=== PATIENT | male | born 1955 | race Caucasian/White ===

== ENCOUNTER 2017-05-06 17:55 | Emergency (ER) | payer MEDICAID ==
--- NOTE | 2017-05-06 18:39 | Emergency Department Record ---
History of Present Illness - General Chief Complaint: Dizziness Stated Complaint: DIZZY Time Seen by Provider: 05/06/17 18:32 Source: Patient Mode of Arrival: EMS Limitations: No limitations - History of Present Illness Initial Comments: 61 yo male presents to ED for evaluation of "dizziness when I lift my head". Patient reports that he is dizzy because "I haven't taken my medication today". Patient denies health problems at his baseline, and is presenting from an [facility] home. Staff is not present from the patient's home to provide further history. MD Complaint: Dizziness Onset/Timin -: Hour(s) Timing: Gradual onset Description: Other History of Same: No History of Trauma: No Worsens With: Nothing Associated Symptoms: Denies other symptoms - [place] Coma Scale Eye Response: (4) Open spontaneously Motor Response: (6) Obeys commands Verbal Response: (5) Oriented [place] Total: 15 - Related Data Home Medications Medication Instructions Recorded Confirmed Last Taken Dicyclomine HCl [Bentyl] 10 mg PO Q8H 05/06/17 05/06/17 Unknown Docusate Sodium [Colace] 100 mg PO TID 05/06/17 05/06/17 Unknown Duloxetine HCl [Cymbalta] 60 mg PO DAILY 05/06/17 05/06/17 Unknown Lactulose 10 gm PO BID 05/06/17 05/06/17 Unknown Levothyroxine Sodium [Synthroid] 50 mcg PO DAILY 05/06/17 05/06/17 Unknown Lorazepam [Ativan] 0.5 mg PO TID 05/06/17 05/06/17 Unknown Olanzapine [Zyprexa] 30 mg PO QHS 05/06/17 05/06/17 Unknown Omeprazole 20 mg PO DAILY 05/06/17 05/06/17 Unknown Pregabalin [Lyrica] 200 mg PO BID 05/06/17 05/06/17 Unknown Quetiapine Fumarate [Seroquel] 400 mg PO QHS 05/06/17 05/06/17 Unknown Sennosides [Senna] 8.6 mg PO QHS 05/06/17 05/06/17 Unknown Sennosides/Docusate Sodium [Senna 2 each PO QHS 05/06/17 05/06/17 Unknown S Tablet] Tamsulosin HCl [Flomax] 0.4 mg PO DAILY 05/06/17 05/06/17 Unknown Trihexyphenidyl HCl 2 mg PO TID 05/06/17 05/06/17 Unknown Travel Screening - Travel/Exposure Within Last 30 Days Have you traveled within the last 30 days?: No Review of Systems Constitutional: Denies: Chills, Fever, Malaise, Night sweats Eyes: Denies: Eye discharge, Eye pain ENT: Denies: Congestion, Ear pain, Epistaxis Respiratory: Denies: Cough, Dyspnea Cardiovascular: Denies: Chest pain, Dyspnea on exertion Endocrine: Denies: Fatigue, Heat or cold intolerance Gastrointestinal: Denies: Abdominal pain, Nausea, Vomiting Genitourinary: Denies: Incontinence, Retention Musculoskeletal: Denies: Arthralgia, Back pain, Gout, Joint swelling Skin: Denies: Bruising, Change in color Neurological: Denies: Abnormal gait, Confusion, Headache Psychiatric: Denies: Anxiety Hematological/Lymphatic: Denies: Anemia, Blood Clots Past Medical History - SOCIAL HISTORY Smoking Status: Never smoker Alcohol Use: None Drug Use: None - RESPIRATORY Hx Respiratory Disorders: No - CARDIOVASCULAR Hx Cardio Disorders: No - GI Hx GI Disorders: No - Hx Genitourinary Disorders: No - ENDOCRINE Hx Endocrine Disorders: No - MUSCULOSKELETAL Hx Musculoskeletal Disorders: No - PSYCH Hx Psych Problems: No - HEMATOLOGY/ONCOLOGY Hx Hematology/Oncology Disorders: No Family Medical History Any Significant Family History?: No Physical Exam - General General Appearance: Alert, Oriented x3, Cooperative, No acute distress Limitations: No limitations - Head Head exam: Atraumatic, Normocephalic, Normal inspection Head exam detail: negative: Abrasion, Contusion, Fink's sign, General tenderness, Hematoma, Laceration - Eye Eye exam: Normal appearance. negative: Conjunctival injection, Periorbital swelling, Periorbital tenderness, Scleral icterus - ENT ENT exam: Mucous membranes dry Ear exam: negative: Auricular hematoma, Auricular trauma Nasal Exam: negative: Active bleeding, Discharge, Dried blood, Foreign body Mouth exam: negative: Drooling, Laceration, Muffled voice, Tongue elevation - Neck Neck exam: Normal inspection. negative: Meningismus, Tenderness - Respiratory Respiratory exam: Normal lung sounds bilaterally. negative: Respiratory distress, Rhonchi, Stridor, Wheezes - Cardiovascular Cardiovascular Exam: Regular rate, Normal rhythm, Normal heart sounds - GI/Abdominal GI/Abdominal exam: Soft. negative: Rebound, Rigid, Tenderness - Rectal Rectal exam: Deferred - exam: Deferred - Extremities Extremities exam: Other (benign resting tremor to the upper extremities bilaterally, numerous scars from presumed self injury to both UEs). negative: Calf tenderness, Pedal edema, Tenderness - Back Back exam: Denies: CVA tenderness (R), CVA tenderness (L) - Neurological Neurological exam: Alert, Oriented X3 - Psychiatric Psychiatric exam: Flat affect, Normal mood - Skin Skin exam: negative: Abrasion Type of lesion: negative: abrasion Course Vital Signs 05/06/17 18:07 Temperature 98.4 F Pulse Rate 68 Respiratory 18 Rate Blood Pressure 137/90 Pulse Ox 99 - Reevaluation(s) Reevaluation #1: 05/06/17 19:44 EKG: NSR 76 Normal axis, normal intervals Diffuse artifact is present, no acute ST-T wave changes are present. Reevaluation #2: 05/06/17 19:51 Labs reviewed and are grossly unremarkable for an acute process. EKG reviewed and is negative for arrhythmia. Patient reports that he did not want to take his home medications which has resulted in his dizziness symptoms. Patient is willing to take his medications now, will administer what we can from the patient's medication reconciliation. Reevaluation #3: 05/06/17 20:14 Lactulose 30 gms, Ativan 0.5, and Lyrica 200 mg given in ED. Patient's Parkinson's medications are not available as the hospital pharmacy is currently closed. Patient appears stable for discharge with the patient's [facility] home employee at the bedside at this time. Medical Decision Making - Lab Data Result diagrams: 05/06/17 19:00 05/06/17 19:00 Disposition Disposition: Discharge Clinical Impression: Vertigo, Noncompliance with medication regimen Disposition: Home, Self-Care Condition: (2) Stable Instructions: Adverse Drug Reaction (ED) Additional Instructions: Return to ED if your symptoms worsen or if you have any concerns. Take your medications as directed. Follow-up with your family doctor in 3-5 days as directed. Forms: Patient Portal Access Time of Disposition: 20:16 Quality - Quality Measures Quality Measures: N/A - Blood Pressure Screening Blood Pressure Classification: Hypertensive Reading Systolic Measurement: 137 Diastolic Measurement: 90 Screening for High Blood Pressure: < First Hypertensive BP, F/U Documented > [ G8950] First Hypertensive Follow-up Interventions: Referral to alternative/primary care provider.
[2017-05-06 19:09] LABS: EOS % 1.4 % (0-6); GRAN % 75.4 % (47-80); HEMATOCRIT 40.9 % (42.0-52.0); HEMOGLOBIN 13.8 gm/dl (14.0-18.0); LYMPH % 13.4 % (16-45); MEAN CELL VOLUME 87.4 fl (81-97); MEAN CORPUSCULAR HEMOGLOBIN 29.4 pg (27-33); MEAN CORPUSCULAR HGB CONC 33.7 g/dl (32-36); MEAN PLATELET VOLUME 10.8 fl (7.4-10.4); MONO % 9.8 % (0-9); PLATELET COUNT 123 K/uL (130-400); RED BLOOD COUNT 4.68 M/uL (4.40-5.70); WHITE BLOOD COUNT W/O DIFF 5.6 K/uL (4.2-12.2)
[2017-05-06 19:21] LABS: ALB/GLOB RATIO 1.7 (1.1-1.8); ALBUMIN 4.7 gm/dL (3.5-5.0); ALKALINE PHOSPHATASE 79 U/L (38-126); ALT/SGPT 42 U/L (21-72); ANION GAP 10.7 (7-16); AST/SGOT 36 U/L (17-59); BILIRUBIN,TOTAL 0.93 mg/dL (0.2-1.3); BLOOD UREA NITROGEN 11 mg/dL (9-20); CARBON DIOXIDE 28.3 mmol/L (22-30); CREATININE 0.8 mg/dL (0.66-1.25); EST GLOMERULAR FILTRATION RATE > 60 ml/min; GLUCOSE,RANDOM 100 mg/dL (70-110); TOTAL PROTEIN 7.5 gm/dL (6.3-8.2)
[2017-05-06] MEDS ORDERED: PREGABALIN (LYRICA) 100MG CAPSULE PO ONE (20:12)
[2017-05-06] MEDS ORDERED: LACTULOSE 20 GM/30 ML UDC PO ONE (20:13)
[2017-05-06] MEDS ORDERED: LORAZEPAM 0.5 MG TABLET PO ONE (20:14)
[2017-05-06] MEDS ORDERED: PREGABALIN (LYRICA) 100MG CAPSULE PO SCH (20:15)
== END 2017-05-06 20:50 | disposition home or self-care (01) ==
LOC: ER 17:55
DX: R42 Dizziness and giddiness (principal); Z91.14 Patient's other noncompliance with medication regimen; G20 Parkinson's disease
CPT/HCPCS: 80053; 84443; 85025; 93005; 93010; 99284

== ENCOUNTER 2017-05-23 16:26 | Observation (INO) | payer MEDICAID ==
[2017-05-23] MEDS ORDERED: MECLIZINE 25 MG TABLET PO ONE (16:32)
--- NOTE | 2017-05-23 16:37 | Emergency Department Record ---
History of Present Illness - General Chief Complaint: Syncope Stated Complaint: SYNCOPE Time Seen by Provider: 05/23/17 16:29 Source: Patient, EMS Mode of Arrival: EMS Limitations: No limitations Travel/Exposure to [facility] Within 21 Days of Symptoms: No - History of Present Illness Initial Comments: 61 yo male presents by EMS with dizziness and difficulty walking. He lives at the [facility] home. He states he has had this in the past as well. He was seen in the ED on 05/06/17. He denies syncope. He denies any pain currently. He states the symptoms occur with standing. He has a history of Parkinson and psychiatric diagnoses. He has had all his medications except his Lyrica. Prior visit concern was that he is not taking his medications. EMS had little additional information from the home but stat he normally ambulates without assistance. MD Complaint: Other (Dizziness) -: Hour(s) (2) Prodromal Symptoms: None, Lightheaded Description of Event: Other (Weak and shaky all over) Injuries Sustained Associated with Event: None Current Symptoms: Lightheaded Context: Standing up - [place] Coma Scale Eye Response: (4) Open spontaneously Motor Response: (6) Obeys commands Verbal Response: (5) Oriented [place] Total: 15 - Symptoms of Stroke Symptoms of stroke: Dizziness - Related Data Home Medications Medication Instructions Recorded Confirmed Last Taken Dicyclomine HCl [Bentyl] 10 mg PO Q8H 05/06/17 05/23/17 1 Day Ago ~05/22/17 Docusate Sodium [Colace] 100 mg PO TID 05/06/17 05/23/17 1 Day Ago ~05/22/17 Duloxetine HCl [Cymbalta] 60 mg PO DAILY 05/06/17 05/23/17 1 Day Ago ~05/22/17 Lactulose 10 gm PO BID 05/06/17 05/23/17 1 Day Ago ~05/22/17 Levothyroxine Sodium [Synthroid] 50 mcg PO DAILY 05/06/17 05/23/17 1 Day Ago ~05/22/17 Lorazepam [Ativan] 0.5 mg PO TID 05/06/17 05/23/17 1 Day Ago ~05/22/17 Olanzapine [Zyprexa] 30 mg PO QHS 05/06/17 05/23/17 1 Day Ago ~05/22/17 Omeprazole 20 mg PO DAILY 05/06/17 05/23/17 1 Day Ago ~05/22/17 Pregabalin [Lyrica] 200 mg PO BID 05/06/17 05/23/17 1 Day Ago ~05/22/17 Quetiapine Fumarate [Seroquel] 400 mg PO QHS 05/06/17 05/23/17 1 Day Ago ~05/22/17 Sennosides [Senna] 8.6 mg PO QHS 05/06/17 05/23/17 1 Day Ago ~05/22/17 Tamsulosin HCl [Flomax] 0.4 mg PO DAILY 05/06/17 05/23/17 1 Day Ago ~05/22/17 Trihexyphenidyl HCl 2 mg PO TID 05/06/17 05/23/17 1 Day Ago ~05/22/17 Paliperidone Palmitate [Invega 234 mg IM ASDIR 05/23/17 05/23/17 05/09/17 Sustenna] Polyethylene Glycol 3350 17 gm PO DAILY 05/23/17 05/23/17 1 Day Ago ~05/22/17 Sennosides [Senna] 8.6 mg PO BID 05/23/17 05/23/17 1 Day Ago ~05/22/17 Allergies Allergy/AdvReac Type Severity Reaction Status Date / Time Penicillins Allergy RASH Verified 05/23/17 16:41 Review of Systems Constitutional: Reports: Malaise, Weakness. Denies: Chills, Fever Eyes: Denies: Eye discharge, Eye pain, Photophobia ENT: Denies: Congestion, Throat pain Respiratory: Denies: Cough, Dyspnea Cardiovascular: Denies: Chest pain, Palpitations, Syncope Endocrine: Reports: Fatigue. Denies: Polydipsia, Polyuria Gastrointestinal: Reports: Nausea. Denies: Abdominal pain, Diarrhea, Vomiting Genitourinary: Denies: Dysuria, Frequency, Hematuria Musculoskeletal: Denies: Arthralgia, Back pain, Myalgia, Neck pain Skin: Denies: Bruising, Change in color, Rash Neurological: Reports: Tremors (chronic ), Weakness. Denies: Headache, Numbness Psychiatric: Denies: Anxiety Hematological/Lymphatic: Denies: Easy bleeding, Easy bruising, Swollen glands Past Medical History - SOCIAL HISTORY Smoking Status: Never smoker Drug Use: None - RESPIRATORY Hx Respiratory Disorders: No - CARDIOVASCULAR Hx Cardio Disorders: No - GI Hx GI Disorders: No - Hx Genitourinary Disorders: No - ENDOCRINE Hx Endocrine Disorders: No - MUSCULOSKELETAL Hx Musculoskeletal Disorders: No - PSYCH Hx Psych Problems: No - HEMATOLOGY/ONCOLOGY Hx Hematology/Oncology Disorders: No Physical Exam - General General Appearance: Alert, Oriented x3, Cooperative, No acute distress, Other ( resting tremor) Limitations: No limitations (aswers current histoyr and PMHx questions well) - Head Head exam: Atraumatic, Normocephalic, Normal inspection Head exam detail: negative: Abrasion, Contusion, Hematoma, Laceration - Eye Eye exam: Normal appearance, PERRL, EOMI. negative: Conjunctival injection, Periorbital swelling Pupils: Normal accommodation - ENT ENT exam: Normal exam, Mucous membranes moist Ear exam: Normal external inspection Nasal Exam: Normal inspection Mouth exam: Normal external inspection Teeth exam: Normal inspection - Neck Neck exam: Normal inspection, Full ROM. negative: Tenderness - Respiratory Respiratory exam: Normal lung sounds bilaterally. negative: Respiratory distress, Rhonchi, Stridor, Wheezes - Cardiovascular Cardiovascular Exam: Regular rate, Normal rhythm, Normal heart sounds Peripheral Pulses: 2+: Radial (R), Radial (L) - GI/Abdominal GI/Abdominal exam: Soft. negative: Tenderness - Rectal Rectal exam: Deferred - exam: Deferred - Extremities Extremities exam: Normal inspection, Full ROM. negative: Joint swelling, Pedal edema, Tenderness - Back Back exam: Reports: Normal inspection, Full ROM. Denies: Muscle spasm, Rash noted, Tenderness - Neurological Neurological exam: Abnormal gait (unable to stable due to generalized sheking and weakness), Alert, CN II-XII intact, Oriented X3, Other (No weakness with lower leg raises. No lower ext PND at 10 seconds.). negative: Altered, Motor sensory deficit (anodiser intact, no PND at 10 seconds) - Psychiatric Psychiatric exam: Normal affect, Normal mood. negative: Agitated, Anxious - Skin Skin exam: Dry, Intact, Normal color, Warm. negative: Abrasion, Cyanosis, Erythema Stroke Assessment - NIH Stroke Scale 1a. Level of Consciousness: (0) Alert 1b. LOC Questions: (0) Answers Correctly 1c. LOC Commands: (0) Performs Tasks Correctly 2. Best Gaze: (0) Normal 3. Visual: (0) No Visual Loss 4. Facial Palsy: (0) Normal Symmetrical Movement 5a. Motor Arm Left: (0) No Drift 5b. Motor Arm Right: (0) No Drift 6a. Motor Leg Left: (0) No Drift 6b. Motor Leg Right: (0) No Drift 7. Limb Ataxia: (2) Present 2 Limbs (chronic resting and active tremor from parkinsons dz) 8. Sensory: (0) Normal 9. Best Language: (0) No Aphasia 10. Dysarthria: (0) Normal 11. Extinction/Inattention: (0) No Abnormality NIH Stoke Scale Total: 2 NIH Stroke Scale Date: 05/23/17 NIH Stroke Scale Time: 17:00 Course - Reevaluation(s) Reevaluation #1: EMR reviewed from prior ED visit 05/23/17 16:39 Reevaluation #2: EKG 16:38 NR with artifact due to temor, rate 75, intervals QTc 481, axis normal , NS ST changes. Similar EKG to 05/06/17 05/23/17 16:51 Reevaluation #3: No acute changes on the CBC,CMP,Troponin 05/23/17 17:24 Reevaluation #4: No acute process on the HCT. No hemorrhage or stroke. 05/23/17 17:25 05/23/17 17:54 I rechecked the patient He stated he felt better Myself and the nurse at the bedside performed and ambulation trial The patient was very shaky but able to sit up on his own. He was not able to fully stand up due to feeling shaky, weak and dizzy His baseline is that he ambulates without assistance. Reevaluation #5: Given his inability to stand to to generalized weakness and dizziness I SW Dr Ramachandran. He will admit OBV for neuro checks, he is a fall risk as well. 05/23/17 18:02 Medical Decision Making - Lab Data Result diagrams: 05/23/17 16:30 05/23/17 16:30 Disposition Disposition: Admit Clinical Impression: Generalized weakness, Dizziness Disposition: Still a Patient at [facility] Decision to Admit: Admit from ER Decision to Admit Date: 05/23/17 Decision to Admit Time: 18:02 Condition: (1) Good Forms: Patient Portal Access Time of Disposition: 18:01 Quality - Quality Measures Quality Measures: N/A - Blood Pressure Screening View Details: Yes Blood Pressure Classification: Hypertensive Reading Systolic Measurement: 183 Diastolic Measurement: 113 Screening for High Blood Pressure: < First Hypertensive BP, F/U Documented > [ G8950] First Hypertensive Follow-up Interventions: Referral to alternative/primary care provider.
[2017-05-23 16:46] LABS: BASO % 0.2 % (0-6); EOS % 0.3 % (0-6); HEMATOCRIT 36.9 % (42.0-52.0); HEMOGLOBIN 12.4 gm/dl (14.0-18.0); MEAN CELL VOLUME 87.9 fl (81-97); MEAN CORPUSCULAR HEMOGLOBIN 29.5 pg (27-33); MEAN CORPUSCULAR HGB CONC 33.6 g/dl (32-36); MEAN PLATELET VOLUME 10.2 fl (7.4-10.4); MONO % 5.2 % (0-9); PLATELET COUNT 154 K/uL (130-400); RED CELL DISTRIBUTION WIDTH 13.1 % (11.5-14.5); WHITE BLOOD COUNT W/O DIFF 6.3 K/uL (4.2-12.2)
[2017-05-23 17:02] LABS: PLATELET ESTIMATE NORMAL (NORMAL)
[2017-05-23 17:04] LABS: AMMONIA < 8.7 umol/L (9-30)
[2017-05-23 17:07] LABS: BLOOD UREA NITROGEN 11 mg/dL (9-20); CREATININE 0.8 mg/dL (0.66-1.25); EST GLOMERULAR FILTRATION RATE > 60 ml/min; GLUCOSE,RANDOM 105 mg/dL (70-110)
[2017-05-23 17:08] LABS: ALB/GLOB RATIO 1.8 (1.1-1.8); ALBUMIN 4.3 gm/dL (3.5-5.0); ALKALINE PHOSPHATASE 77 U/L (38-126); ALT/SGPT 51 U/L (21-72); AST/SGOT 35 U/L (17-59); TOTAL PROTEIN 6.7 gm/dL (6.3-8.2); TROPONIN I < 0.012 ng/mL (0.00-0.034)
[2017-05-23 18:08] LABS: THYROID STIMULATING HORMONE 1.72 uIU/ml (0.465-4.68)
[2017-05-23] MEDS ORDERED: 0.9 % SODIUM CHLORIDE 1,000 ML BAG IV ONE (18:15)
[2017-05-23] MEDS ORDERED: MECLIZINE 25 MG TABLET PO PRN (18:20)
[2017-05-23] MEDS ORDERED: 0.9 % SODIUM CHLORIDE 1000ML 1,000 ML IV PRN (18:20)
[2017-05-23] MEDS ORDERED: PALIPERIDONE PALMITATE 234 MG IM SCH (18:20)
[2017-05-23] MEDS ORDERED: ONDANSETRON 4 MG ODT TABLET SL PRN (18:20)
[2017-05-23] MEDS ORDERED: TRIHEXYPHENIDYL HCL 2 MG PO SCH (22:00)
[2017-05-23] MEDS ORDERED: OLANZAPINE 5MG TABLET PO SCH (22:00)
[2017-05-23] MEDS ORDERED: QUETIAPINE FUMARATE 100 MG TABLET PO SCH (22:00)
[2017-05-23] MEDS: LACTULOSE 20 GM/30 ML UDC PO SCH (22:09)
[2017-05-23] MEDS: PREGABALIN (LYRICA) 100MG CAPSULE PO SCH (22:09)
[2017-05-23] MEDS: LORAZEPAM 0.5 MG TABLET PO SCH (22:09)
[2017-05-24] MEDS ORDERED: LEVOTHYROXINE SODIUM 50 MCG TABLET PO SCH (07:00)
[2017-05-24] MEDS ORDERED: PANTOPRAZOLE SODIUM 40 MG TABLET PO SCH (07:00)
--- NOTE | 2017-05-24 07:26 | CT SCAN REPORT ---
EXAM: HEAD CT HISTORY: ATYPICAL VERTIGO. TECHNIQUE: Noncontrast head CT was obtained. Comparison: None. FINDINGS: There is mild prominence of the ventricles and subarachnoid spaces compatible with the patient's age. There is no mass or mass effect. No intra or extraaxial hemorrhage. No CT evidence for large acute territorial infarct. No fracture or acute osseous abnormality identified. Mild mucosal thickening in some of the ethmoid air cells. IMPRESSION: 1. NO MASS, HEMORRHAGE, OR ACUTE INTRACRANIAL PROCESS. 2. MILD MUCOSAL THICKENING IN SOME OF THE ETHMOID AIR CELLS. JOB NUMBER: [id number] [facility]
--- NOTE | 2017-05-24 08:47 | Discharge Note ---
VTE H&P Assessment - Risk for VTE Risk for VTE: Yes Risk Level: Very Low Risk Assessment Date: 05/24/17 Risk Assessment Time: 08:43 VTE Orders Placed or Will Be Placed: No VTE Reason for No Prophylaxis: Not Indicated (patient going home and not in the hospital long enough) Discharge Medications - Discharge Medications Prescriptions: Meclizine HCl [Antivert] 25 mg PO Q8H PRN #20 tablet PRN Reason: Vertigo Home Medications: Ambulatory Orders Dicyclomine HCl [Bentyl] 10 mg PO Q8H 05/06/17 [Last Taken 1 Day Ago ~05/22/17] Docusate Sodium [Colace] 100 mg PO TID 05/06/17 [Last Taken 1 Day Ago ~05/22/17] Duloxetine HCl [Cymbalta] 60 mg PO DAILY 05/06/17 [Last Taken 1 Day Ago ~] Lactulose 10 gm PO BID 05/06/17 [Last Taken 1 Day Ago ~05/22/17] Levothyroxine Sodium [Synthroid] 50 mcg PO DAILY 05/06/17 [Last Taken 1 Day Ago ~05/22/17] Lorazepam [Ativan] 0.5 mg PO TID 05/06/17 [Last Taken 1 Day Ago ~05/22/17] Olanzapine [Zyprexa] 30 mg PO QHS 05/06/17 [Last Taken 1 Day Ago ~05/22/17] Omeprazole 20 mg PO DAILY 05/06/17 [Last Taken 1 Day Ago ~05/22/17] Pregabalin [Lyrica] 200 mg PO BID 05/06/17 [Last Taken 1 Day Ago ~05/22/17] Quetiapine Fumarate [Seroquel] 400 mg PO QHS 05/06/17 [Last Taken 1 Day Ago ~04/02] Sennosides [Senna] 8.6 mg PO QHS 05/06/17 [Last Taken 1 Day Ago ~05/22/17] Tamsulosin HCl [Flomax] 0.4 mg PO DAILY 05/06/17 [Last Taken 1 Day Ago ~05/22/17 ] Trihexyphenidyl HCl 2 mg PO TID 05/06/17 [Last Taken 1 Day Ago ~05/22/17] Paliperidone Palmitate [Invega Sustenna] 234 mg IM ASDIR 05/23/17 [Last Taken ] Polyethylene Glycol 3350 17 gm PO DAILY 05/23/17 [Last Taken 1 Day Ago ~05/22/17 ] Sennosides [Senna] 8.6 mg PO BID 05/23/17 [Last Taken 1 Day Ago ~05/22/17] Meclizine HCl [Antivert] 25 mg PO Q8H PRN #20 tablet 05/24/17 [Last Taken Unknown] Discharge Note - Date Date of Discharge Note: 05/24/17 Condition: (1) Good Instructions: Benign Paroxysmal Positional Vertigo (GEN) Additional Instructions: follow up with Primary Dr Espinoza in one week to 10 days use antivert every 8 hours if having spinning sensations or balance problems Forms: Patient Portal Access Activity at Discharge: Increase Activity as Tolerated Diet at Discharge: Regular Diet
[2017-05-24] MEDS: PREGABALIN (LYRICA) 100MG CAPSULE PO SCH (09:38)
[2017-05-24] MEDS: LORAZEPAM 0.5 MG TABLET PO SCH (09:39)
[2017-05-24] MEDS: LACTULOSE 20 GM/30 ML UDC PO SCH (09:40)
[2017-05-24] MEDS ORDERED: DULOXETINE HCL 30 MG CAPSULE.DR PO SCH (10:00)
[2017-05-24] MEDS ORDERED: TAMSULOSIN HCL 0.4 MG CAP.ER.24H PO SCH (10:00)
--- NOTE | 2017-05-24 13:19 | US CAROTID DOPPLER REPORT ---
EXAM: BILATERAL CAROTID DOPPLER ULTRASOUND HISTORY: DIZZINESS. TECHNIQUE: Real-time cuevas scale sonographic imaging of the neck was performed with Duplex Doppler and spectral analysis. Comparison: None FINDINGS: Cuevas scale images reveal a small amount of smooth soft plaque at the left carotid bulb. No significant plaque on the right. Spectral analysis reveals brisk carotid upstroke with no parvus tardus morphology. Velocities are as follows: Right CCA PSV: 78.9 cm/s Right ICA PSV: 71.3 cm/s Right ICA EDV: 23.2 cm/s Right ECA PSV: 89.4 cm/s Right ICA/CCA ratio: 0.9 Left CCA PSV: 83 cm/s Left ICA PSV: 70.2 cm/s Left ICA EDV: 29.6 cm/s Left ECA PSV: 72.4 cm/s Left ICA/CCA ratio: 0.8 There is antegrade flow in the vertebral arteries. IMPRESSION: NO HEMODYNAMICALLY SIGNIFICANT STENOSIS IN THE NECK IDENTIFIED. JOB NUMBER: [id number] [facility]
--- NOTE | 2017-05-24 15:00 | History and Physical Report ---
OBSERVATION PATIENT CHIEF COMPLAINT: Vertigo. HISTORY OF PRESENT ILLNESS: This 61-year-old male patient presented to the Emergency Department with vertigo, balance, and difficulty walking. Patient was seen by Dr. Raymundo. CT of the head was negative. He was given Antivert, but was still too dizzy to send home. He stated he could not get up off the bed to walk. He was able to sit up on the cart. He was admitted to the hospital for further evaluation, neuro checks, and a carotid Doppler. He was given Antivert in the ER. He improved dramatically through the night. When I saw the patient, he was totally better. His vertigo was gone. He was ambulating around the room without difficulties. He states this happened once before a month ago, and it went away in about the same amount of time. PAST MEDICAL HISTORY: Parkinson's disease. He has a pill rolling tremor. Paranoid schizophrenia. Sees a psychiatrist, Dr. Becker. He has had GERD, hypothyroidism, and benign prostatic hyperplasia. PAST SURGICAL HISTORY: He has a colon resection for a bowel obstruction. T&A as a child. [place] teeth removed. MEDICATIONS ON ADMISSION: He takes Senna 8.6 mg b.i.d. MiraLAX 17 grams daily. He gets a shot of Invega Sustenna IM monthly. He also is on trihexyphenidyl hydrochloric 2 mg t.i.d., Flomax 0.4 mg daily, Seroquel 400 mg at bedtime, Lyrica 200 mg b.i.d., omeprazole 20 mg daily, Zyprexa 30 mg at bedtime, Ativan 0.5 mg t.i.d. p.r.n., levothyroxine 50 mcg daily, lactulose 10 grams b.i.d., Cymbalta 60 mg daily, Colace 100 mg daily, and Bentyl 10 mg every 8 hours p.r.n. ALLERGIES: Penicillin. FAMILY PSYCHOSOCIAL HISTORY: Unremarkable. He has never smoked cigarettes. No alcohol or drug use. REVIEW OF SYSTEMS: HEENT: No upper respiratory infection symptoms, cough, cold, or congestion. Cardiovascular: No chest pain, palpitations, or arrhythmias. Respiratory: No cough, cold or congestion. Gastrointestinal: No nausea, vomiting, diarrhea, black stools, or bloody stools. Genitourinary: No dysuria, hematuria, frequency, or burning on urination. Musculoskeletal: Moving all 4 extremities, but he walks with a shuffling gait. He has pill-rolling tremors from Parkinson's disease. Neurologic: He has pill-rolling tremors of both arms, and he states that it might be also due to tardive dyskinesia from his Thorazine. He denies seizures or headaches. His balance is bad because of his Parkinson's disease. Endocrine: No diabetes, but he does have hypothyroidism. Integument: No rash, ulcers, changes in moles, or yellow skin. PHYSICAL EXAMINATION: VITAL SIGNS: Height 6'1". Weight 200 pounds. Temperature 98.4. Pulse 67. Blood pressure 138/72. Respiratory rate 16. Pulse ox on room air 96%. HEENT: Pupils equal, round, and reactive to light and accommodation. Extraocular muscles intact. Throat is clear. Nose is clear. Tympanic membranes joseph. NECK: Supple. No jugular venous distention. No hepatojugular reflux. No carotid bruits. Thyroid is smooth. CARDIOVASCULAR: Regular rate and rhythm without murmurs, clicks, rubs, or gallops. RESPIRATORY: Clear to auscultation and percussion. ABDOMEN: Soft, nontender, no hepatosplenomegaly. No masses or tenderness. Bowel sounds active. No bruits. EXTREMITIES: No pitting edema. No cyanosis or clubbing. Full range of motion. Peripheral pulses good. BREASTS: Normal male breasts. GENITALIA: Deferred. RECTAL: Deferred. NEUROLOGIC: Cranial nerves II-XII intact. No gross deficits. Sensation normal. Strength normal. Deep tendon reflexes equal bilaterally. Babinski is negative. He has a [id number] tremor both arms, and he walks with a shuffling gait. MENTAL STATUS: Alert and oriented x3. IMPRESSION: 1. Vertigo. 2. Benign postural vertigo. 3. Parkinson's disease. 4. Paranoid schizophrenia. 5. Benign prostatic hyperplasia. 6. GERD. 7. Hypothyroidism. PLAN: At this point, he is completely better. Will continue to get the carotid Doppler's and discharge the patient. He was on Observation Patient. He will follow up with his primary doctor Dr. Espinoza on [facility] in [place], and his psychiatrist he should follow up as scheduled. [facility]
--- NOTE | 2017-05-24 15:10 | Discharge Summary ---
OBSERVATION PATIENT DATE OF ADMISSION: 05/23/2017 DATE OF DISCHARGE: 05/24/2017 DISCHARGE DIAGNOSES: 1. Vertigo. 2. Benign positional vertigo. 3. Parkinson's disease. 4. Paranoid schizophrenia. 5. Benign prostatic hyperplasia. 6. GERD. 7. Hypothyroidism. ATTENDING PHYSICIAN: Faraz Ramachandran DO PRIMARY CARE PHYSICIAN: Dr. Olga Luna [place], [place]. PSYCHIATRIST: Dr. Becker. REASON FOR HOSPITALIZATION: Vertigo, spinning, unable to stand up and ambulate. This 61-year-old male came to the Emergency Department stating he had severe dizziness and spinning. It started this morning when he woke up. He had difficulty ambulating. He was evaluated by Dr. Raymundo in the Emergency Department. A head CT was negative. Labs were unremarkable, but he could not send him home after giving him Antivert because he could not get off the table. He was able to sit up, but he could not stand. His balance was off. He was admitted to the hospital for observation. When I saw the patient in the morning, he was completely better. He states the vertigo is gone. He is ambulating around the room without difficulty. SIGNIFICANT FINDINGS FROM EXAMINATION: Carotid Doppler was done, which was negative for any significant occlusion in the carotid arteries. There was some soft plaquing noted. Otherwise, unremarkable carotid Doppler. His head CT was normal. No acute changes. LABORATORY: His laboratory analysis revealed WBC 6300. Hemoglobin 12.4. Potassium 3.8. Sodium 134. Chloride 98. BUN 11. Creatinine 0.8. Ammonia was less than 8.7. Troponin was normal. TSH normal at 1.72. THERAPY PROVIDED: IV fluids and Antivert 25 mg every 8 hours. I think he had 1 dose of Antivert. HOSPITAL COURSE: Unremarkable. Improved. CONDITION ON DISCHARGE: Much improved. Carotid Doppler's, as stated, were negative. DISCHARGE INSTRUCTIONS: 1. Follow up with his primary doctor, Dr. Espinoza out [facility]. 2. Follow up with his psychiatrist as scheduled. 3. Use Antivert 25 mg t.i.d. p.r.n. Continue his home medications as prescribed prior to coming to the hospital, which would be Senna 8.6 b.i.d., MiraLAX 17 grams daily, Invega 234 mg IM periodically as prescribed by the psychiatrist, probably monthly. Trihexyphenidyl 2 mg t.i.d. Flomax 0.4 mg daily. Seroquel 400 mg at bedtime. Lyrica 200 mg b.i.d. Omeprazole 20 mg daily. Zyprexa 30 mg at bedtime. Ativan 0.5 mg t.i.d. Synthroid 50 mcg daily. Lactulose 10 grams b.i.d. Cymbalta 60 mg daily. Colace 100 mg t.i.d. Bentyl 10 mg every 8 hours. CC: Dr. Espinoza, [facility] Dr. Rosita HORNER
== END 2017-05-24 14:40 | disposition home or self-care (01) ==
LOC: ER 16:26 → MEDSURG 18:16
PROVIDERS: ADMIT Emergency Medicine; ATTEND Emergency Medicine
DX: H81.10 Benign paroxysmal vertigo, unspecified ear (principal); G20 Parkinson's disease; F20.0 Paranoid schizophrenia; N40.0 Benign prostatic hyperplasia without lower urinary tract symptoms; K21.9 Gastro-esophageal reflux disease without esophagitis; E03.9 Hypothyroidism, unspecified
CPT/HCPCS: 70450; 80053; 82140; 83735; 84443; 84484; 85027; 93005; 93010; 93880; 96360; 99285; J7030